=== PATIENT | male | born 1970 | race Caucasian/White ===

== ENCOUNTER 2021-06-01 23:03 | Emergency (ER) | payer BC, SELFPAY ==
[2021-06-01 23:23] VITALS: BP 144/83; PULSE 78; RESP 17; TEMP 36.6; O2SAT 94; BMI 31.3
--- NOTE | 2021-06-01 23:49 | XRR_ITS ---
PROCEDURE INFORMATION: Exam: XR Left Foot Exam date and time: 06/01/2021 11:49 PM Age: 51 years old Clinical indication: Injury or trauma; Fall; Blunt trauma; Foot; Left TECHNIQUE: Imaging protocol: XR Left foot. Views: 3 or more views. COMPARISON: No relevant prior studies available. FINDINGS: Bones/joints: Chronic degenerative changes in the 1st metatarsal-phalangeal joint. Heel spur Soft tissues: Normal. XR/XR foot LT min 3V* [id number] IMPRESSION: No acute findings
--- NOTE | 2021-06-01 23:49 | XRR_ITS ---
PROCEDURE INFORMATION: Exam: XR Left Ankle Exam date and time: 06/01/2021 11:49 PM Age: 51 years old Clinical indication: Injury or trauma; Fall; Swelling (edema); Ankle; Left TECHNIQUE: Imaging protocol: XR Left ankle. Views: 3 or more views. COMPARISON: No relevant prior studies available. FINDINGS: Bones/joints: Heel spur. Incidental ossicle inferior to the medial malleolus. The ankle mortise is normally aligned. No fracture Soft tissues: Normal. XR/XR ankle LT 2V [id number] IMPRESSION: No acute findings
--- NOTE | 2021-06-01 23:55 | ED_ITS ---
HPI - Extremity Problem General: Chief complaint: Extremity Injury, Lower Stated complaint: lower left injury Time Seen by Provider: 06/01/21 23:35 History of Present Illness: HPI Narrative: 51-year-old male who injured his ankle/foot while getting in a kayak yesterday afternoon. He has exhibited pain and swelling since that time with some bruising. Pain is located to the mid arch medially, and behind his right ankle. Worsened with weightbearing he state s he has broken that ankle previously. MD Complaint: extremity pain and extremity swelling Onset (ago): hour(s) (32) Pain Consistency: constant Location: right Quality: stabbing and aching Radiation: proximal Relieving factors: immobilization Exacerbating factors: weight bearing Associated symptoms: Deny chest pain, fever(s), rash or short of breath Review of Systems Const: Denies: fever(s) Card: Denies: chest pain Skin/Breast: Denies: rash PFSH ED PFSH: Social History Smoking and tobacco status: current every day smoker Physical Exam Const: COMMON NORMALS: no acute distress and healthy appearing Chest: COMMONS NORMALS: normal inspection of the chest Resp: COMMON NORMALS: normal respiratory effort, No use of accessory muscles and clear to auscultation bilaterally AUSCULTATION: clear to auscultation bilaterally Cardio: COMMON NORMALS: regular rate, regular rhythm and Peripheral pulses 2+ throughout RATE: regular rate RHYTHM: regular rhythm PERIPHERAL PULSES: Peripheral pulses 2+ throughout Extremity: NARRATIVE EXTREMITY EXAM: Exam of the left lower extremity reveals tenderness at the medial longitudinal arch mid arch, with some deltoid tenderness at the medial ankle. Swelling is present. Mild ecchymosis is present as well. Mild lateral ankle tenderness is present as well. No deformity. Neurovascular intact distally. Course Vital Signs: Vital signs: Vital Signs Temperature 97.9 F 06/01/21 23:23 Pulse Rate 78 06/01/21 23:23 Respiratory Rate 17 06/01/21 23:23 Blood Pressure 144/83 06/01/21 23:23 Pulse Oximetry 94 06/01/21 23:23 MDM - Extremity (Nontraumatic) MDM Narrative: Medical decision making narrative: X-rays negative for acute fracture by my read. Soft tissue swelling over the medial aspect of the ankle and foot. Suspect a posterior tibialis tendon injury. Will write a prescription for a cam walker boot, and let the patient bear weight as tolerated. Outpatient follow-up. Discharge Plan Discharge Patient Disposition: Home Clinical Impression: Tibialis posterior tendon rupture Qualifiers: Encounter type: initial encounter Laterality: left Qualified Code(s): S86.112A - Strain of other muscle(s) and tendon(s) of posterior muscle group at lower leg level, left leg, initial encounter Condition: Stable Prescriptions: New hydrocodone-acetaminophen 5-325 mg tablet 1 tab PO Q8H PRN (Reason: pain) Qty: 7 RF: 0 No Action lisinopril 10 mg tablet 10 mg PO BID RF: 0 Discharge Orders: Discharge ED (Routine); Ordered 06/02/21 Ordered By: Chad Franks Referrals: Bienvenido Oseguera [Primary Care Provider] - Discharge Diet: Usual diet Discharge Activity: Limit activity as instructed Patient Instructions: Ankle Sprain (ED) Activity Restrictions/Additional Instructions: You may bear weight as tolerated in the fracture boot for which you were written a prescription. Follow-up with your doctor in a week for recheck. Return for worsening swelling, redness with streaking, fever, any other concerning symptoms. Use ice and anti-inflammatory pain medication. Coding Level of Care Code ED Extracorporeal Circulation Specialist for Nikhil Fwsravanthi Exam Expanded Problem Focused
[2021-06-02 01:06] VITALS: BP 137/81; PULSE 72; RESP 18; O2SAT 97
== END 2021-06-02 01:06 | disposition home or self-care (01) ==
PROVIDERS: Emergency Provider Emergency Medicine; PCP Physician Assistant Medical
DX: S86.112A Strain of other muscle(s) and tendon(s) of posterior muscle group at lower leg level, left leg, initial encounter (principal); F17.200 Nicotine dependence, unspecified, uncomplicated; X58.XXXA Exposure to other specified factors, initial encounter
CPT/HCPCS: 73600; 73630; 99282

== ENCOUNTER 2021-08-19 18:30 | Inpatient (IN) | payer SELFPAY ==
[2021-08-19] VITALS (23 sets, daily range): BP systolic 134–169; BP diastolic 87–109; PULSE 71–91; RESP 16–33; TEMP 36.4–36.6; O2SAT 93–99; BMI 29.5
--- NOTE | 2021-08-19 18:41 | PM.HP ---
Providers/Chief Complaint Admitting Physician: Reynaldo Smith MD Primary Care Provider: Bienveniod Oseguera Chief Complaint: STEMI ALERT History of Present Illness Britton Moody is a 51 year old male with past medical history of hypertension has presented with severe chest pressure. He has been having chest pressure for the last 2 hours. He was hunting when he started noticing chest pressure. No radiation. EKG shows acute ST elevation LA involving inferior wall. He was emergently taken to the cardiac Referral Clerk which showed totally occluded proximal RCA s/p 2 successful revascularization with the SHAHNAZ x2. His chest pain and EKG changes resolved afterwards. Review of Systems Narrative: CONSTITUTIONAL: No fever chills weight loss or gain or night sweats. [] HEENT: Normocephalic, atraumatic.[] RESPIRATORY: No cough, sputum, hemoptysis or wheezing.[] CARDIOVASCULAR: Has chest pressure. GI: no nausea vomiting diarrhea. [] APPLIED ANTHROPOLOGIST: No numbness, tingling, weakness or loss of function in any part of the body. [] MUSCULOSKELETAL: No knee or joint pain or rashes. [] Medications/Allergies Home Medications Medication Instructions Recorded Confirmed Last Taken Type lisinopril 10 mg tablet 10 mg PO BID 04/21/21 04/21/21 Unknown History hydrocodone-acetaminophen 1 tab PO Q8H PRN #7 tab 06/02/21 Unknown Rx Allergies Allergy/AdvReac Type Severity Reaction Status Date / Time aspirin Allergy Unknown Verified 04/21/21 08:53 PFSH Acute PFSH: Medical History Hypertension Social History Smoking and tobacco status: current every day smoker Physical Exam Narrative: EXAM NARRATIVE: GENERAL: Patient is alert, awake and oriented x3. [] NECK: No jugular vein distension. [] HEENT: No cyanosis. No icterus. No pallor. [] HEART: Regular S1 and S2. No murmur, rub or gallop. [] LUNGS: Clear to auscultate bilaterally. [] ABDOMEN: Soft, nontender and nondistended. Positive bowel sounds. No guarding, rebound or tenderness. [] CENTRAL NERVOUS SYSTEM: Grossly nonfocal. [] EXTREMITIES: Lower extremities with 1+ edema bilaterally. Pulses palpable in the lower extremities, both dorsalis pedis and posterior tibial. [] Data : 08/20/21 03:17 08/20/21 03:17 A&P Assessment and plan (1) STEMI (ST elevation myocardial infarction): Status: Acute (2) Hypertension: Status: Acute (3) Tobacco abuse: Status: Acute (4) Atrial fibrillation: Status: Acute Patient has presented with acute ST elevation LA involving inferior wall. He underwent coronary angiogram showing total thrombotic occlusion of proximal RCA. He underwent successful revascularization with SHAHNAZ x2. Transfer to ICU Aspirin and Brilinta. He was found to be in A. fib at presentation later converted to normal sinus rhythm. At time of discharge we will switch him to Eliquis and Plavix. High intensity statin therapy Lisinopril and metoprolol Order echocardiogram Attestations Medical Necessity Statement*: Care expected to cross 2 midnights. Patient had presented with acute ST elevation LA involving RCA and is status post successful revascularization with SHAHNAZ x2. Coding Level of Care Code Acute Lineman Service Or Work Dispatcher for Nikhil Henao Diagnoses STEMI (ST elevation myocardial infarction) I21.3 Hypertension I10 Tobacco abuse Z72.0 Atrial fibrillation I48.91
--- NOTE | 2021-08-19 18:42 | ECG_ITS ---
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 Measurements Intervals [facility] Rate: 74 P: KS: QRS: 89 QRSD: 90 T: 102 QT: 422 QTc: 470 Interpretive Statements ATRIAL FIBRILLATION MARKED ST ELEVATION, CONSIDER INFERIOR INJURY [MARKED ST ELEVATION W/O NORMALLY INFLECTED T-WAVE IN II/aVF] ST elevation in lead V5 V6, suggestive of lateral wall injury ST depressions in leads V1, V2, I and aVL, suggest reciprocal changes ACUTE TX Compared to ECG 10/21/2015 15:37:36 Myocardial infarct finding now present Sinus bradycardia no longer present Intraventricular conduction delay no longer present Early repolarization no longer present ST (T wave) deviation still present Electronically Signed On 08-19-2021 21:59:08 INDUCTION HEATING EQUIPMENT SETTER by Forrest Adams M.D. [id number]
--- NOTE | 2021-08-19 18:43 | XACV_ITS ---
Wt: 91 kg Gender: Male : 1970 Exam Priority: Routine Procedure(s): Procedure Description: Diagnostic procedure Procedure Description: PCI procedure Procedure Description: Drug Eluting Coronary Stent Procedure Description: PTCA Procedure Description: Miscellaneous Procedure Description: ACT Procedure Description: Coronary Angiography Diagnostic Cath Status: Emergency Diagnostic Findings * INDICATION: ST elevation UT. * Left Anterior Descending has moderate to severe 70% stenosis in the apical vessel.. * Circumflex has no significant disease. * Proximal Right Coronary Artery to Mid Right Coronary Artery: total thrombotic occlusion, HUMAIRA: 0 flow. * Left Main has no disease. * Mid Right Coronary Artery: total occlusion, HUMAIRA: 0 flow. * Coronary angiography shows right dominance. PCI Status: Emergency PCI Indication: STEMI - Immediate PCI for STEMI Interventional Findings * Mid Right Coronary Artery: 100% stenosis treated with a MDT R RED 3.0 HSAHNAZ. 0% residual stenosis, HUMAIRA: 3 flow. * Procedure details: We engaged RCA with a JR4 guide catheter. IV heparin was administered to maintain an ACT above 250 seconds. A 0.014 run-through guidewire was used to cross the stenosis and was placed in distal vessel. 2.5 x 12 mm semicompliant balloon was used to predilate the stenosis. This was followed by placement of 3.0 x 15 mm resolute [place] drug-eluting stent. At the distal edge there was still some residual stenosis that was treated with a second 3.0 resolute [place] stent. At this time final angiogram was performed that showed excellent stent expansion, HUMAIRA-3 flow and no residual stenosis. Guidewire and guide catheter were removed. Patient left the Dealer Support Technician in a stable condition. * Proximal Right Coronary Artery to Mid Right Coronary Artery: 100% stenosis treated with a AB TREK 2.50X12 RX BALLOON, and MDT R RED 3.0X30 SHAHNAZ. 0% residual stenosis, HUMAIRA: 3 flow. Conclusions 1. There is total thrombotic of proximal to mid RCA status post successful revascularization with SHAHNAZ x2. . 2. Apical LAD has 70% stenosis however it is very distal vessel and will be treated medically. 3. Proximal Right Coronary Artery to Mid Right Coronary Artery was treated with a Balloon, and Drug Eluting Stent. 4. Mid Right Coronary Artery was treated with a Drug Eluting Stent. Recommendations * Transfer to ICU. * Aspirin and Plavix for at least 1 year. * High intensity statin therapy. * Lisinopril and metoprolol. * Outpatient cardiology follow-up in 1 month. * Order echocardiogram. Interventional RX Recommendation: PCI w/o planned CABG Diagnostic RX Recommendation: PCI w/o planned CABG Anticoagulation: Heparin Pressures Phase:Rest AO : 154 / 107 ( 126 ) @ 4:56:00 PM 155 / 3 ( 11 ) @ 5:01:00 PM 117 / 78 ( 97 ) @ 5:14:00 PM Clinical Evaluation EBL: 5mL-10mL Procedural Details Pre-Procedure Time Out. Identified patient by full name and date of as verbalized by the patient/guarantor. Does the consent match the physician's order: N/A Emergent. Accurate & Complete Informed Consent: N/A Emergent. Inpatient/Outpatient History & Physical on Chart: N/A Emergent. Visualize and Verify Site with Patient/Guarantor: N/A. Relevant Radiology Images available: N/A. Pre-op teaching completed and patient verbalized understanding. The risks, benefits, and alternatives of sedation and/or procedure were discussed by physician. The patient agrees to continue. Procedure started. [facility] Clinical Fraility Score: 3: Managing Well. Dealer Support Technician Indications: ACS <= 24 hours. Chest Pain Symptom Assessment: Atypical Angina. Correct patient, site and procedure confirmed by cath team. Current diagnosis: STEMI. PERRLA. Strong, equal hand ice cream freezer helper bilaterally. Lungs clear x 5 lobes. IV Site on Arrival: 20 gauge in the right hand. IV Fluids: 0.9% NaCl at KVO. 200 mL infused prior to recyclable materials distributor. Pre Procedural Pulses: right radial was 3+. Oxygen started at 2liters/min via nasal canula. right radial was prepped with chloroprep then draped in the usual sterile fashion. right groin was prepped with chloroprep then draped in the usual sterile fashion. Physician notified. Baseline sample Acquired. HR: 57 BPM. Physician arrived. Physician scrubbed in. Immediate Pre-Procedure Time Out. Correct Patient: Yes; Correct Procedure: Yes; Correct Site: Yes; Correct Patient Position: Yes; Correct Supplies: Yes; Dried Flammable Prep: N/A; Blood Products Available: N/A;. Lidocaine 1% infiltrated to the right radial. Arterial access obtained. PCI Indication: STEMI. Paula Bryan RN circulating procedure. A 5 ghanaian TIG catheter in over wire. Multiple views taken of left coronary artery. Catheter out. 6 ghanaian JR 4 guide catheter was inserted over the wire. Runthrough guidewire was advanced through the guide catheter to lesion in the prox RCA. AP pad applied. Inflation number : 1 A AB TREK 2.50X12 RX BALLOON was prepped and advanced across the Prox RCA , then inflated to 12 PATRICE for 0:20 seconds. Balloon out. Results checked. Balloon inserted to lesion in the prox LAD. Inflation Number : 2 A MDT R RED 3.0X30 SHAHNAZ -Lot Number# Lot [id number] Exp 04/18/2024 was prepped and advanced across the Prox RCA. The stent was deployed at 14 PATRICE for 0:21 seconds. Stent inserted to lesion in the prox RCA. Stent balloon out over wire. Results checked. Stent inserted to lesion in the mid RCA. Inflation Number : 1 A MDT R RED 3.0X30 SHAHNAZ -Lot Number# Lot [id number] Exp 04/18/2024 was prepped and advanced across the Mid RCA. The stent was deployed at 12 PATRICE for 0:25 seconds. Inflation number: 2 The stent balloon was then re-inflated across the Mid RCA to 14 PATRICE for 0:09 seconds. Stent balloon out over wire. Results checked. Wire out. Results checked. Guide catheter out. A 5 ghanaian TIG catheter in over wire. Multiple views taken of left coronary artery. Catheter out. ACT drawn. Results 222 seconds. Therapeutic limits - pre-heparin administration 90-150 seconds and monitoring heparin during a vascular procedure >250 seconds. Wire out. Admit Source: Emergency department. A TR Band was successful obtaining hemostatsis at the Radial artery insertion site. Post Procedure: Pulses reassessed and unchanged. PERRLA. Strong, equal hand ice cream freezer helper bilaterally. No VTE prophylaxis required. Medication's Wasted: Lidocaine 1% = 16 mL. Total IV fluids: 53 mL. Medication's Wasted: Nitro = 49.7 mg. PCI Indication: STEMI. Post-op diagnosis: Occlusion of Proximal and Mid RCA, STEMI. Complications: none. Estimated blood loss: 5mL-10mL. Procedure completed. Patient transferred by wheelchair to CPRU. Vital chart was stopped. Access Site Site: Radial artery Sheath Size: 6 Fr Hemostasis Method: TR Band Hemostasis Success: Successful Procedure Medications Start: 6:51 PM Stop: 6:51 PM Medication: Versed Amount: 1 mg Route: I.V. Start: 6:52 PM Stop: 6:52 PM Medication: Fentanyl Amount: 50 mcg Route: I.V. Start: 6:53 PM Stop: 6:53 PM Medication: Heparin Amount: 4000 units Route: I.V. Start: 6:53 PM Stop: 6:53 PM Medication: Aspirin Amount: 325 mg Route: P.O. Start: 6:53 PM Stop: 6:53 PM Medication: Heparin Amount: 5000 units Route: I.V. Start: 7:03 PM Stop: 7:03 PM Medication: Versed Amount: 1 mg Route: I.V. Start: 7:08 PM Stop: 7:08 PM Medication: Aggrastat 12.5 mg/250 mL Amount: 46 ml Route: I.V. bolus Start: 7:08 PM Stop: 7:08 PM Medication: Aggrastat 12.5 mg/250 mL Amount: 16.6 ml/hr Route: I.V. bolus Start: 7:09 PM Stop: 7:09 PM Medication: Nitrogylcerin Amount: 200 mcg Route: I.C. Start: 6:51 PM Stop: 6:51 PM Medication: Nitrogylcerin Amount: 100 mcg Route: I.A. I, the attending physician, have reviewed and verified all procedure medications. Yes, all medications given per verbal order Report Signatures Finalized by Reynaldo Smith MD on 09/02/2021 06:28 PM
--- NOTE | 2021-08-19 18:45 | W.ED.GENADLT ---
HPI - General Adult General: Chief complaint: Chest Pain Stated complaint: STEMI ALERT Time Seen by Provider: 08/19/21 18:39 History of Present Illness: HPI narrative: CC: Chest Pain HPI: This is a [51] yo patient hx of HTN, smoking BIBA to the ED w/ acute onset crushing substernal chest pain x 45 minutes . En route, HDS, field ECG showed inferior STEMI. Pain is a very typical prior presentation of cardiac chest pain. Pain not relieve with fentanyl and nitro SL x 4 Denies tearing back pain or chest pain. Onset: 45 minutes ago Duration: ongoing for the last 45 minutes Location: home Severity: severe Review of Systems Narrative: Constitutional: No fever, no chills. HEENT: No vision changes, no sore throat. CV: +chest pain, no palpitations. PULM: No cough, +dyspnea. GI: No abdominal pain, no N/V/D. : No dysuria, no frequency, no hematuria. MSKEL: No arthralgias, no edema. SKIN: No new rashes, no lesions. NEURO: No headache, no focal weakness. HEME: No easy bleeding or bruising. PSYCH: No change in mood or affect. PFS ED PFSH: Medical History Hypertension Social History Smoking and tobacco status: current every day smoker Physical Exam Narrative: EXAM NARRATIVE: Head: Atraumatic, normocephalic Eyes: PERRL, EOMI, conjunctiva without injection ENT: Throat without erythema, lesions or exudate, MMM NECK: Supple, trachea midline, no JVD LUNGS: LCTA CV: RRR, S1,S2, no murmurs, rubs, gallops. 2+ peripheral pulses in UEs ABDOMEN: Soft, nontender, nondistended, BS x4, no rigidity, no guarding, no rebound EXTREMITY: Normal ROM, no pitting edema, no calf tenderness to palpation SKIN: No rash or erythema NEURO: Awake and alert. No focal motor deficits. PSYCH: Normal mood and affect. MDM - General Adult MDM Narrative: Medical decision making narrative: [51]yo pt w/ hx of HTN and smoking BIBA for active chest pain with field EKG for STEMI in the inferior distributions. Pt received ASA 325mg and nitroSL x 4. Repeat ECG in the ED showed FELA in the infrior distributions with reciprocal changes. Patient was otherwise in their normal state of health before this chest pain rapidly ensued. Given history and exam I have a lower suspicion for TAA or dissection because no tearing chest pain, bounding bilateral UE pulses, XR chest did not show widened mediastinum, and patient is neurologically intact. I have no suspicion for PE because hx and exam are more consistent with STEMI and no signs of right axis with FELA findings on ECG. I performed a bedside echo which did not right heart strain to suggest submassive/massive PE. Pending: CBC, BMP, troponin, T&S, PT/INR. Will obtain repeat EKGs until woods laborer, CXR. [6:47] Initial ECG showed FELA in the distribution of 2/3/aVFL with reciprocal changes. [Time] Case and EKG discussed with Cardiology provider Dr. Knight who agrees that this is a STEMI. Intervention: ASA 325mg, Brillianta 180mg, and heparin drip Disposition: Lead Business Systems Analyst Discharge Plan Discharge Patient Disposition: Admitted As Inpatient Clinical Impression: ST elevation HI (STEMI) Condition: Stable Coding Level of Care Code ED Fence Post Driver for Nikhil Henao
[2021-08-19 18:52] LABS: Basophils # 0.1 10^3/uL (0.0-0.1); Basophils % 0.4 %; Eosinophils # 0.1 10^3/uL (0.0-0.8); Eosinophils % 0.7 %; Hematocrit 40.6 % (42.0-52.0); Hemoglobin 13.9 g/dL (11.7-16.6); Lymphocytes % 16.1 %; Mean Corpuscular HGB Conc 34.2 g/dL (30.0-36.0); Mean Corpuscular Hemoglobin 29.4 pg (28.0-34.0); Mean Platelet Volume 8.9 fL (7.4-10.4); Monocytes # 0.8 10^3/uL (0.2-0.9); Monocytes % 6.1 %; Neutrophils # 9.43 10^3/uL (1.8-7.7); Neutrophils % 76.2 %; Nucleated Red Blood Cells % 0 %; Platelet Count 259 10^3/cmm (130-400); Red Blood Count 4.72 10^6/uL (4.1-5.3); White Blood Count 12.4 10^3/uL (4.0-10.0)
[2021-08-19 18:58] LABS: INR 1.05 (0.8-1.2)
[2021-08-19 19:00] LABS: Anion Gap 18.7 (5-19); Blood Urea Nitrogen 12 mg/dL (6-20); Calcium 8.1 mg/dL (8.5-10.5); Carbon Dioxide 21 mmol/L (22-29); Chloride 103 mmol/L (98-107); Glomerular Filtration Rate 101.9 mL/min (90-130); Glucose 170 mg/dL (65-115); Osmolality Calculated 292 mOsm/kg (285-295); Potassium 3.7 mmol/L (3.5-5.1); Sodium 139 mmol/L (136-145)
[2021-08-19 19:06] LABS: Troponin(5th) Baseline 19 ng/L (0-15)
[2021-08-19 20:28] LABS: Basophils % 0.3 %; Eosinophils % 0.1 %; Hematocrit 45.2 % (42.0-52.0); Hemoglobin 14.6 g/dL (11.7-16.6); Lymphocytes # 1.1 10^3/uL (0.8-4.8); Lymphocytes % 10.7 %; Mean Corpuscular HGB Conc 32.3 g/dL (30.0-36.0); Mean Corpuscular Hemoglobin 28.9 pg (28.0-34.0); Mean Corpuscular Volume 89.3 fl (80-94); Mean Platelet Volume 8.6 fL (7.4-10.4); Monocytes # 0.4 10^3/uL (0.2-0.9); Monocytes % 3.8 %; Neutrophils # 8.43 10^3/uL (1.8-7.7); Neutrophils % 84.8 %; Nucleated Red Blood Cells % 0 %; Platelet Count 240 10^3/cmm (130-400); Red Blood Count 5.06 10^6/uL (4.1-5.3); Red Cell Distribution Width 13.2 % (12.1-15.1); White Blood Count 9.9 10^3/uL (4.0-10.0)
--- NOTE | 2021-08-19 20:42 | ECG_ITS ---
[facility] Test Date: 2021-08-19 Pat Name: Britton Moody Department: Room: [facility] Gender: Male Media Aid: : 1970 Requested By: Alex Martinez Order Number: [id number] Shilo MD: Forrest Adams M.D. Measurements Intervals [place] Rate: 79 P: 72 AK: 174 QRS: 69 QRSD: 104 T: 28 QT: 380 QTc: 436 Interpretive Statements SINUS RHYTHM PROBABLE INFERIOR MYOCARDIAL INFARCTION , OF INDETERMINATE AGE [35 ms Q WAVE IN II/aVF] Compared to ECG 08/19/2021 18:34:12 Atrial fibrillation no longer present ST (T wave) deviation no longer present Myocardial infarct finding still present Electronically Signed On 08-20-2021 22:49:10 LINING MACHINE TENDER by Forrest Adams M.D. [id number]
[2021-08-19 20:53] LABS: Anion Gap 18.1 (5-19); Blood Urea Nitrogen 12 mg/dL (6-20); Calcium 8.9 mg/dL (8.5-10.5); Carbon Dioxide 23 mmol/L (22-29); Chloride 99 mmol/L (98-107); Glucose 142 mg/dL (65-115); Osmolality Calculated 284 mOsm/kg (285-295); Potassium 4.1 mmol/L (3.5-5.1); Sodium 136 mmol/L (136-145)
[2021-08-19] MEDS: metoprolol tartrate 25 mg Tablet PO (21:16)
[2021-08-19] MEDS: atorvastatin 40 mg Tablet 80 MG PO (21:21)
[2021-08-19] MEDS: sodium chloride 0.9% 1,000 ML 100 ML IV (21:21)
--- NOTE | 2021-08-19 22:59 | PC.NURSE ---
Transfer Note Patient transferred to ICU 5 from laborer orchard via stretcher. Handoff received from Paula FLEMING, stated to turn off Aggrastat gtt at 23:15. Dr. Smith at bedside, spoke with patient. Patient oriented to environment and equipment. Covering service notified. Orders reviewed and will continue to monitor. Family and/or patient admitting representative notified.
--- NOTE | 2021-08-19 23:05 | PC.NURSE ---
Addendum entered by Antonieta Murrieta RN 08/20/21 06:30: 06:30 Spoke with echocardiogram tech rounding on floor, showed him Dr. Smith's noted in regards to diagnostic request. Addendum entered by Antonieta Murrieta RN 08/20/21 05:32: Approx. 04:[address] Smith of increasing ectopy with short runs of VT, order given to add mag level to AM labs and continue to monitor. Addendum entered by Antonieta Murrieta RN 08/20/21 03:00: Charge nurse Torri Ward RN, confirmed with Dr. Smith cancelled serial cardiac markers. Original Note: Patient stable at time of transfer. TR band in place, site soft without redness or warmth. Shortly after transfer patient started to have frequent PVC's. Dr. Smith called and notified of increase in PVC's and most recent labs, order given to give metoprolol first dose now and monitor.
[2021-08-20] VITALS (62 sets, daily range): BP systolic 92–135; BP diastolic 56–91; PULSE 59–81; RESP 14–24; TEMP 36.6–37.3; O2SAT 93–99
--- NOTE | 2021-08-20 00:42 | ECG_ITS ---
[facility] Test Date: 2021-08-20 Pat Name: Britton Moody Department: Room: [facility] Gender: Male Outreach Director: : 1970 Requested By: Alex Martinez Order Number: [id number] Shilo MD: Forrest Adams M.D. Measurements Intervals [place] Rate: 65 P: 70 NC: 156 QRS: 62 QRSD: 102 T: 76 QT: 413 QTc: 430 Interpretive Statements SINUS RHYTHM INFERIOR MYOCARDIAL INFARCTION , POSSIBLY ACUTE [40+ ms Q WAVE AND/OR ST/T ABNORMALITY IN II/aVF] ACUTE SC Compared to ECG 08/19/2021 21:01:22 No significant changes Electronically Signed On 08-20-2021 22:49:47 SWIMMING POOL SERVICER by Forrest Adams M.D. [id number]
[2021-08-20] MEDS: temazepam 15 mg Capsule PO (01:25)
[2021-08-20 04:30] LABS: Basophils % 0.4 %; Eosinophils % 0.4 %; Hematocrit 43.7 % (42.0-52.0); Hemoglobin 14.1 g/dL (11.7-16.6); Lymphocytes # 1.5 10^3/uL (0.8-4.8); Lymphocytes % 18.2 %; Mean Corpuscular HGB Conc 32.3 g/dL (30.0-36.0); Mean Corpuscular Hemoglobin 28.7 pg (28.0-34.0); Monocytes # 0.6 10^3/uL (0.2-0.9); Monocytes % 6.7 %; Neutrophils % 74.1 %; Nucleated Red Blood Cells % 0 %; Platelet Count 254 10^3/cmm (130-400); Red Blood Count 4.91 10^6/uL (4.1-5.3); Red Cell Distribution Width 13.2 % (12.1-15.1); White Blood Count 8.4 10^3/uL (4.0-10.0)
[2021-08-20 04:58] LABS: Anion Gap 18.9 (5-19); Blood Urea Nitrogen 12 mg/dL (6-20); Calcium 8.6 mg/dL (8.5-10.5); Carbon Dioxide 21 mmol/L (22-29); Chloride 99 mmol/L (98-107); Glomerular Filtration Rate 118.9 mL/min (90-130); Glucose 140 mg/dL (65-115); Osmolality Calculated 282 mOsm/kg (285-295); Potassium 3.9 mmol/L (3.5-5.1); Sodium 135 mmol/L (136-145)
[2021-08-20 05:10] LABS: Magnesium 1.9 mg/dL (1.7-2.3)
--- NOTE | 2021-08-20 07:55 | P.PN_ITS ---
Subjective Subjective: Interval history: Patient is overall doing well. Denies any chest pain. Vitals/I&O/Wt Last Vital Signs Temp 98.8 F 08/20/21 04:00 Pulse 62 08/20/21 06:30 Resp 19 H 08/20/21 06:30 BP 110/76 08/20/21 06:30 Pulse Ox 96 08/20/21 06:30 08/19/21 08/20/21 08/20/21 22:59 06:59 14:59 Intake Total 150 / 150 Output Total 850 / 850 Balance -850 / -850 150 / -700 Weight last 48 hrs Weight 206 lb 1.6 oz Weight 200 lb Physical Exam Narrative: EXAM NARRATIVE: GENERAL: Patient is alert, awake and oriented x3. [] NECK: No jugular vein distension. [] HEENT: No cyanosis. No icterus. No pallor. [] HEART: Regular S1 and S2. No murmur, rub or gallop. [] LUNGS: Clear to auscultate bilaterally. [] ABDOMEN: Soft, nontender and nondistended. Positive bowel sounds. No guarding, rebound or tenderness. [] CENTRAL NERVOUS SYSTEM: Grossly nonfocal. [] EXTREMITIES: Lower extremities with 1+ edema bilaterally. Pulses palpable in the lower extremities, both dorsalis pedis and posterior tibial. [] Data : 08/21/21 05:05 08/21/21 05:05 A&P Assessment and plan (1) STEMI (ST elevation myocardial infarction): Status: Acute (2) Hypertension: Status: Acute (3) Tobacco abuse: Status: Acute (4) Atrial fibrillation: Status: Acute Patient has presented with acute ST elevation [place] involving inferior wall. He underwent coronary angiogram showing total thrombotic occlusion of proximal RCA. He underwent successful revascularization with SHAHNAZ x2. If beds are available in the cardiac stepdown unit, will transfer him out. Aspirin and Brilinta. He is now in normal sinus rhythm was briefly in A. fib. Can be switched to Eliquis as outpatient High intensity statin therapy Lisinopril and metoprolol Echocardiogram pending. Attestations Medical Necessity Statement*: Care expected to cross 2 midnights. Patient had presented with acute ST elevation AR and underwent successful revascularization with SHAHNAZ x2. Coding Level of Care Code Acute [facility] Judge for Nikhil Henao Diagnoses STEMI (ST elevation myocardial infarction) I21.3 Hypertension I10 Tobacco abuse Z72.0 Atrial fibrillation I48.91
[2021-08-20] MEDS: metoprolol tartrate 25 mg Tablet PO ×2 (08:11→20:16)
[2021-08-20] MEDS: ticagrelor 90 mg Tablet PO ×2 (08:11→16:58)
--- NOTE | 2021-08-20 09:05 | PC.CHAP ---
Pastoral Care Encounter/Spiritual Assessment Type of Contact [] Declined media technician visit [] Patient/Family/Request visit [] Outpatient visit [] Follow-up visit [] Physician referral [] Code/Alert [x] Routine visit [] Staff referral [] Actively dying [x] Patient sleeping [] Family support [] [] Out of room [] Palliative care [] [x] Receiving care in room [] Pre-surgical visit [] Trauma [] Long length of stay [x] ICU visit [] Other: Relational/Emotional Strength [] Patient feels connected with others/family/visitors/staff [] Distress [] Loneliness/isolation [] Abandonment Spirituality of Patient [] Person of Alina [] Attends Mormonism of their Alina [] Believes in Prayer [] Reads Bible or Islam materials [] There are Spiritual issues to be addressed Character Artist Interventions [x] Prayer [] Active listening [] Non-anxious presence [] Spiritual/emotional support [] Crisis/trauma care [] Spiritual counseling [] Bereavement support [] Provided bereavement packet [] Provided Bible/devotional materials [] Provided toy/stuffed animal, coloring book to patient or family member [] Provided Communion [] Anointing/[place] [] Salvation [x] Completed spiritual assessment [] Other: Impact on Illness or Injury [] Angry [] Fearful [] Anxious [] Often cries [] Exhaustion [] Unable to work [] Unable to attend uatsdin [] Unable to walk/stand [] Unable to read [] Unable to drive [] Unable to eat/drink [] Unable to sleep [] Unable to be with family [] Patient intubated [] Other: Summary Time spent with patient
--- NOTE | 2021-08-20 09:28 | PC.PHAR ---
pt states he takes care of his own medications-pt states not taken lisinopril 10mg bid in months-ext med history shows last filled 10/17/20 90d/s-pt states he use to have a proair inhaler but states he doesnt have it anymore rx last filled 10/18/20
--- NOTE | 2021-08-20 10:44 | PC.NURSE ---
0700 report received, assessment completed as charted. AAOx4. R radial with dressing c/d/i. Pt denies CP or any needs. Uses urinal. Makes all needs known. Will monitor
--- NOTE | 2021-08-20 12:34 | USCV_ITS ---
Britton Moody Age: 51 Gender: M : 1970 Exam Date: 08/20/2021 13:50 Ordering Phys: Reynaldo Smith M.D ([email or web address]) Technologist: Alexandra Gibbs Exam Location: [facility] [place] Indication: POST STEMI BP: 135 / 76 HR: 66 Rhythm: Sinus Technical Quality: Adequate MEASUREMENTS (Male / Female) Normal Values 2D ECHO LV Diastolic Diameter PLAX 3.9 cm 4.2 - 5.9 / 3.9 - 5.3 cm LV Systolic Diameter PLAX 2.8 cm IVS Diastolic Thickness 1.3 cm 0.6 - 1.0 / 0.6 - 0.9 cm IVS Systolic Thickness 1.8 cm LVPW Diastolic Thickness 1.4 cm 0.6 - 1.0 / 0.6 - 0.9 cm LVPW Systolic Thickness 1.8 cm RV Chamber Size 3.0 cm LVOT Diameter 2.0 cm LV Ejection Fraction 2D Teich 54.4 % LV Ejection Fraction MOD 2C 49.8 % LV Ejection Fraction 2C AL 45.9 % LA Diameter 3.0 cm LA Width 2.5 cm LA Height 3.5 cm RA Width 3.5 cm RA Height 3.6 cm Aorta at Sinotubular Diameter 2.0 cm DOPPLER AV Peak Velocity 113.0 cm/s LVOT Peak Velocity 109.0 cm/s AV Area Cont Eq vti 3.2 cm squared AV Area Cont Eq pk 3.0 cm squared MV Area PHT 4.2 cm squared Mitral E to A Ratio 1.1 MV E' Velocity 39.0 cm/s Mitral E to MV E' Ratio 8.4 Mitral E to LV E' Lateral Ratio 8.5 Mitral E to LV E' Septal Ratio 8.3 TR Peak Velocity 224.7 cm/s TR Peak Gradient 20.2 mmHg Right Atrial Pressure 8.0 mmHg Pulmonary Artery Systolic Pressu 28.2 mmHg PV Peak Velocity 62.0 cm/s RV Acceleration Time 0.1 s RV Ejection Time 0.3 s RV AcT/ET 0.4 FINDINGS Left Ventricle Normal left ventricular size. LV systolic function is normal with EF of 50-55%. Mild hypokinesis of inferior wall. Normal diastolic filling pattern. Right Ventricle The right ventricle is normal in size and function. Right Atrium The right atrium is normal in size. Left Atrium The left atrium is normal in size. Mitral Valve Structurally normal mitral valve without significant stenosis or prolapse. There is trace mitral regurgitation. Aortic Valve Structurally normal aortic valve without significant sclerosis or stenosis. There is no aortic regurgitation. Tricuspid Valve Structurally normal tricuspid valve without significant stenosis or regurgitation. Insufficient TR jet to calculate RVSP Pulmonic Valve Structurally normal pulmonic valve without significant stenosis. There is trace pulmonic regurgitation. Pericardium Normal pericardium without effusion. Aorta Normal ascending aorta dimension. CONCLUSIONS LV systolic function is normal with EF of 50-55%. Mild hypokinesis of inferior wall. Normal diastolic function Trace mitral and trace pulmonic regurgitation No comparsion studies are available Reynaldo Smith MD (Electronically Signed) Final Date: 21 August 2021 13:38 S
[2021-08-20] MEDS: sodium chloride 0.9% 1,000 ML 50 ML IV (16:57)
--- NOTE | 2021-08-20 17:53 | PC.NURSE ---
Shift Note Frequent safety and comfort rounds continue. Orders and/or nursing care completed as indicated. Patient monitored for response to intervention and treatment(s). Education provided includes treatment plan, medications, s/s of CP and IA. Pt verbalizes understanding. Denies any needs, up in room walking at times. VSS. Will continue to monitor.
--- NOTE | 2021-08-20 19:15 | PC.NURSE ---
Family at bedside Family at bedside upon shift assessment. Education regarding cardiac diet and visiting hours provided via discussion and printed materials. Family states intention of visiting following day.
[2021-08-20] MEDS: atorvastatin 40 mg Tablet 80 MG PO (20:17)
[2021-08-21] VITALS (22 sets, daily range): BP systolic 91–128; BP diastolic 54–87; PULSE 55–62; RESP 13–19; TEMP 36.6–36.8; O2SAT 94–98; BMI 29.2
--- NOTE | 2021-08-21 05:21 | PC.NURSE ---
Ambulation Patient safely transitioned to bedside commode from bed, in addition to walked short distances within room. Patient's vitals remained stable and only required standby assistance for ambulation.
[2021-08-21 05:44] LABS: Basophils # 0.1 10^3/uL (0.0-0.1); Basophils % 0.7 %; Eosinophils # 0.3 10^3/uL (0.0-0.8); Eosinophils % 2.8 %; Hematocrit 46.1 % (42.0-52.0); Hemoglobin 14.7 g/dL (11.7-16.6); Lymphocytes # 2.1 10^3/uL (0.8-4.8); Lymphocytes % 22.6 %; Mean Corpuscular HGB Conc 31.9 g/dL (30.0-36.0); Mean Corpuscular Hemoglobin 29.2 pg (28.0-34.0); Mean Corpuscular Volume 91.5 fl (80-94); Monocytes # 0.7 10^3/uL (0.2-0.9); Monocytes % 7.2 %; Neutrophils # 6.05 10^3/uL (1.8-7.7); Neutrophils % 66.5 %; Nucleated Red Blood Cells % 0 %; Platelet Count 264 10^3/cmm (130-400); Red Blood Count 5.04 10^6/uL (4.1-5.3); Red Cell Distribution Width 13.6 % (12.1-15.1); White Blood Count 9.1 10^3/uL (4.0-10.0)
[2021-08-21 06:09] LABS: Anion Gap 14.5 (5-19); Blood Urea Nitrogen 16 mg/dL (6-20); Calcium 8.3 mg/dL (8.5-10.5); Carbon Dioxide 21 mmol/L (22-29); Chloride 107 mmol/L (98-107); Glucose 107 mg/dL (65-115); Osmolality Calculated 288 mOsm/kg (285-295); Potassium 4.5 mmol/L (3.5-5.1); Sodium 138 mmol/L (136-145)
--- NOTE | 2021-08-21 07:13 | PC.NURSE ---
Report received, assessment completed. Pt AAOx4, makes all needs known. VSS. No issues noted. NS at 50ml/h per orders. Will monitor.
[2021-08-21] MEDS: metoprolol tartrate 25 mg Tablet PO (07:55)
[2021-08-21] MEDS: ticagrelor 90 mg Tablet PO (07:55)
--- NOTE | 2021-08-21 10:04 | P.DS_ITS ---
Discharge Providers Date of Admission: 08/19/21 19:50 Date of Discharge: August 21, 2021 Attending Provider at Admission: Reynaldo Smith M.D Attending Provider at Discharge: Reynaldo Smith M.D Primary Care Provider: Bienvenido Oseguera Diagnoses at Discharge Discharge Diagnosis (1) STEMI (ST elevation myocardial infarction): (2) Hypertension: Status: Acute (3) Tobacco abuse: Status: Acute (4) Atrial fibrillation: Status: Acute Reason for Visit Reason for Visit: Brief History: Chest pain/ST elevation [place] HPI: 51 year old male with past medical history of hypertension has presented with severe chest pressure. He has been having chest pressure for the last 2 hours. He was hunting when he started noticing chest pressure. No radiation. EKG shows acute ST elevation [place] involving inferior wall. He was emergently taken to the cardiac Service Assistant COURSE: Britton Moody is a 51 year old male with past medical history of hypertension has presented with severe chest pressure. He has been having chest pressure for the last 2 hours. He was hunting when he started noticing chest pressure. No radiation. EKG shows acute ST elevation [place] involving inferior wall. He was emergently taken to the cardiac Service Assistant which showed totally occluded proximal RCA s/p 2 successful revascularization with the SHAHNAZ x2. His chest pain and EKG changes resolved afterwards. Echocardiogram showed preserved LV systolic function with EF of 50 to 55%. He was briefly in atrial fibrillation which resolved after revascularization. Plan for outpatient monitoring and possibly switching from Brilinta to Eliquis and Plavix. Physical Exam Narrative: EXAM NARRATIVE: GENERAL: Patient is alert, awake and oriented x3. [] NECK: No jugular vein distension. [] HEENT: No cyanosis. No icterus. No pallor. [] HEART: Regular S1 and S2. No murmur, rub or gallop. [] LUNGS: Clear to auscultate bilaterally. [] ABDOMEN: Soft, nontender and nondistended. Positive bowel sounds. No guarding, rebound or tenderness. [] CENTRAL NERVOUS SYSTEM: Grossly nonfocal. [] EXTREMITIES: Lower extremities with 1+ edema bilaterally. Pulses palpable in the lower extremities, both dorsalis pedis and posterior tibial. 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 echo complete * [id number] Routine Ultrasound 08/20/21 12:34 Taken Labs from last 24 hours 08/21/21 08/21/21 05:05 05:05 WBC 9.1 RBC 5.04 Hgb 14.7 Hct 46.1 MCV 91.5 MCH 29.2 MCHC 31.9 RDW 13.6 Plt Count 264 MPV 9.0 Neut % (Auto) 66.5 Lymph % (Auto) 22.6 [place] % (Auto) 7.2 Eos % (Auto) 2.8 Baso % (Auto) 0.7 Neut # (Auto) 6.05 Lymph # (Auto) 2.1 [place] # (Auto) 0.7 Eos # (Auto) 0.3 Baso # (Auto) 0.1 Nucleated RBC % (a uto) 0 Nucleated RBCs # 0.0 Sodium 138 Potassium 4.5 Chloride 107 Carbon Dioxide 21 L Anion Gap 14.5 BUN 16 Creatinine 0.9 GFR Calculation 89.0 L Glucose 107 Calculated Osmolal ity 288 Calcium 8.3 L Vitals: Last Vital Signs Temp 97.8 F 08/21/21 08:00 Pulse 56 L 08/21/21 08:30 Resp 18 08/21/21 06:00 BP 128/87 08/21/21 08:30 Pulse Ox 96 08/21/21 08:30 Discharge Plan Discharge Patient Disposition: Home Condition: Stable Prescriptions: New atorvastatin 40 mg Tablet 80 mg PO BEDTIME Qty: 90 RF: 0 metoprolol tartrate 25 mg Tablet 25 mg PO BID@0900,2100 Qty: 120 RF: 3 aspirin 81 mg capsule 81 mg PO DAILY Qty: 90 RF: 1 lisinopril 5 mg tablet 5 mg PO DAILY Qty: 90 RF: 2 Discontinued lisinopril 10 mg tablet 10 mg PO BID RF: 0 No Action clopidogrel 75 mg tablet 75 mg PO DAILY Qty: 90 RF: 3 Discharge Orders: Discharge Order (Routine); Ordered 08/21/21 Ordered By: Reynaldo Smith Referrals: Reynaldo Smith M.D [Physician] - 09/22/21 3:15 pm (FO[facility] UP [facility] [phone] , 1 MONTH FOLLOW UP : SCHEDULED FOR DATE OF September ,TIME OF 3:15 PM ) Jake Nascimento FNP [Nurse Practitioner] - 09/01/21 3:00 pm ([facility]CIMENT[facility] AT [facility] [phone] FOR WOUND CHECK , LAB WORK AND FOLLOW UP DATE OF SEPTEMBER 01 2021 AT 3:00 PM ) Discharge Diet: Cardiac Discharge Activity: Increase activity as tolerated Patient Instructions: Metoprolol (By mouth), Lisinopril (By mouth), Aspirin (By mouth), Atorvastatin (By mouth), Ticagrelor (By mouth) (Brilinta), Heart Attack (DC), Coronary Angioplasty (DC), How to Stop Smoking (DC), Heart Healthy Diet (DC), Coronary Intravascular Stent Placement (DC), Angiogram (DC), Chest Pain Stoplight, Opioid Safety Activity Restrictions/Additional Instructions: Please do not lift more than 5 pounds of weight for the next 5 days Discharge Attestations Time Spent in Discharge Care*: greater than 30 min Quality Metrics Clinical Quality Measures During this hospital stay, did patient experience: AMI Clinical Trial Participant: No Contraindication to aspirin (AMI): Aspirin given Contraindication to statin: Statin prescribed Coding Level of Care Code Acute [facility] note Diagnoses STEMI (ST elevation myocardial infarction) I21.3 Hypertension I10 Tobacco abuse Z72.0 Atrial fibrillation I48.91 Course Vital Signs Vital signs: Vital Signs Temperature 98.0 F 08/21/21 10:58 Pulse Rate 55 L 08/21/21 10:58 Respiratory Rate 18 08/21/21 06:00 Blood Pressure 111/73 08/21/21 10:58 Pulse Oximetry 96 08/21/21 10:58
--- NOTE | 2021-08-21 10:56 | PC.NURSE ---
PIV's x 3 removed without issue. Education provided r/t medications at dc and other cardiac related issues. Awaiting meds to bed from pharmacy. Pt off monitor and dressed. VSS.
--- NOTE | 2021-08-21 11:55 | PC.NURSE ---
Pt dc'd to private vehicle via . All education provided and meds given to pt prior to dc.
== END 2021-08-21 11:55 | disposition home or self-care (01) | DRG 247 ==
LOC: ER 18:41 → CCL 18:41 → ICU 19:51
PROVIDERS: Admitting Provider Internal Medicine; Emergency Provider Emergency Medicine; PCP Physician Assistant Medical; Visit Provider Internal Medicine
PROC: 027035Z Dilation of Coronary Artery, One Artery with Two Drug-eluting Intraluminal Devices, Percutaneous Approach (ICD-10-PCS; principal; 2021-08-19 18:15)
PROC: 027035Z Dilation of Coronary Artery, One Artery with Two Drug-eluting Intraluminal Devices, Percutaneous Approach (ICD-10-PCS; 2021-08-19 18:15)
DX: I21.11 ST elevation (STEMI) myocardial infarction involving right coronary artery (principal); I10 Essential (primary) hypertension; F17.210 Nicotine dependence, cigarettes, uncomplicated; I48.91 Unspecified atrial fibrillation
CPT/HCPCS: 36415; 80048; 83735; 84484; 85025; 85347; 85610; 85730; 93005; 93306; 93454; 99285; C1725; C1769; C1874; C1887; C1894; C9600; J0171; J0461; J1644; J2250; J3010; J3246; J3490; J7030; Q9967

== ENCOUNTER → 2021-09-01 16:12 | Outpatient (BNVA) | payer SELFPAY | PROVIDERS: PCP Physician Assistant Medical; Visit Provider Nurse Practitioner Family | DX: I48.91 Unspecified atrial fibrillation (principal); I25.10 Atherosclerotic heart disease of native coronary artery without angina pectoris | CPT/HCPCS: 80048 ==

== ENCOUNTER 2025-09-08 11:37 | Emergency (ER) | payer SELFPAY ==
--- NOTE | 2025-09-08 11:21 | XRR_ITS ---
PROCEDURE INFORMATION: Exam: XR Chest Exam date and time: 09/08/2025 11:52 AM Age: 55 years old Clinical indication: Pain; Chest pressure; Additional info: Cp TECHNIQUE: Imaging protocol: Radiologic exam of the chest. Views: 1 view. COMPARISON: No relevant prior studies available. FINDINGS: Lungs: No acute pulmonary pathology. Pleural spaces: No pleural effusion. Heart/Mediastinum: Cardiomediastinal contours accentuated by low lung volumes and AP technique. Bones/joints: Mild degenerative change present in the spine. XR/XR chest 1V portable [id number] IMPRESSION: No acute pathology.
[2025-09-08 11:38] VITALS: BP 144/89; PULSE 58; RESP 16; TEMP 36.7; O2SAT 94; BMI 30.1
--- NOTE | 2025-09-08 11:42 | ECG_ITS ---
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
--- NOTE | 2025-09-08 11:47 | W.ED.CHESTPA ---
HPI - Chest Pain General: Chief Complaint: Chest Pain Stated Complaint: chest pain Time Seen by Provider: 09/08/25 11:37 Source: patient and EMS Mode of arrival: EMS Limitations: no limitations History of Present Illness: 55-year-old male has history of coronary disease states that he has been having chest pain for the last 2 to 3 days. States he had worsening pain today a pressure type pain in the center of his chest he is given nitro and route states the pain is since resolved he also has received aspirin. He denies any fevers denies any shortness of breath denies any cough. Related Data Previous Rx's ?Medication ?Instructions ?Recorded aspirin 81 mg capsule 81 mg PO DAILY #90 caps 11/04/21 lisinopril 5 mg tablet See Rx Instructions .Route 06/15/24 .COMPLEX #90 tabs atorvastatin 40 mg tablet See Rx Instructions .Route 05/04/25 .COMPLEX #180 tabs clopidogrel 75 mg tablet See Rx Instructions .Route 05/04/25 .COMPLEX #90 tabs metoprolol tartrate 25 mg tablet See Rx Instructions .Route 05/08/25 .COMPLEX #90 tabs ondansetron 4 mg disintegrating 4 mg PO Q6H PRN nausea and 09/08/25 tablet vomiting #14 tabs pantoprazole 40 mg tablet,delayed 40 mg PO DAILY #60 tabs 09/08/25 release (Protonix) Allergies Allergy/AdvReac Type Severity Reaction Status Date / Time No Known Allergies Allergy Verified 09/08/25 11:46 Review of Systems Card: Reports: chest pain [facility] ED PFSH: Medical History (Updated 09/08/25 @ 14:40 by Oni Art MD) Atherosclerosis of coronary artery Atrial fibrillation STEMI (ST elevation myocardial infarction) Hypertension Family History Father Diabetes Myocardial infarct Mother Myocardial infarct Stroke Social History Smoking and tobacco/nicotine status: current every day tobacco/nicotine user cigarettes Physical Exam Const: COMMON NORMALS: patient oriented x3 HENMT: COMMON NORMALS: normocephalic and atraumatic HEAD & SCALP: normocephalic and atraumatic Neck/C-Spine: COMMON NORMALS: full ROM and supple Chest: COMMONS NORMALS: normal inspection of the chest and normal palpation of entire chest wall Resp: COMMON NORMALS: normal respiratory effort, No retractions, No use of accessory muscles and clear to auscultation bilaterally AUSCULTATION: clear to auscultation bilaterally Cardio: COMMON NORMALS: regular rate, regular rhythm and No murmurs present (Cardio) RATE: regular rate RHYTHM: regular rhythm GI: COMMON NORMALS: Normal to inspection, nondistended, normoactive bowel sounds present, Soft to palpation, non-tender and no masses PALPATION: Yes Soft to palpation Extremity: COMMON NORMALS: normal to inspection and full ROM Neuro: COMMON NORMALS: patient oriented x3, moves all extremities and no focal motor deficits Psych: COMMON NORMALS: mental status grossly normal, Normal thought process present and cooperative THOUGHT PROCESS: Normal thought process present Skin: COMMON NORMALS: no rashes or lesions noted and no wounds GENERAL SKIN EXAM: no rashes or lesions noted Course Vital Signs: Vital signs: Vital Signs Temperature 98.0 F 09/08/25 11:38 Pulse Rate 58 L 09/08/25 11:38 Respiratory Rate 16 09/08/25 11:38 Blood Pressure 144/89 09/08/25 11:38 Pulse Oximetry 94 09/08/25 11:38 Oxygen Delivery Me thod Room Air 09/08/25 11:38 MDM - Chest Pain Medical Decision Making 55-year-old male presents here with chest pain differential includes gastric pain, ACS, pulm embolism, pneumothorax. His pains been atypical in nature here has been going on intermittently for weeks his initial and repeat troponins here are negative heart score is 2. He has no signs of ACS x-ray here was interpreted by me showed no acute abnormality no signs of pneumothorax he has no signs of pulm embolism. His pain was resolved here with GI cocktails likely gastric in origin we will place him on Protonix he is to follow-up with his PCP I did go over all these findings with him he is to return if worsening he understands agrees to plan. EKG interpreted by me at 1142 sinus bradycardia heart rate [address] elevation QRS 107 QTc 409 Second EKG interpreted by me at 1328 sinus bradycardia heart rate [address] elevation QRS 104 QTc 4 7 Medical Records I reviewed the patient's medical records. Lab Data I reviewed the patient's lab results. 09/08/25 11:48 09/08/25 11:48 Radiology Impressions Chest X-Ray 09/08/25 11:21 IMPRESSION: No acute pathology. Laboratory Results WBC 9.69 10^3/uL (3.29-11.43) 09/08/25 11:48 RBC 5.42 10^6/uL (3.85-5.65) 09/08/25 11:48 Hgb 15.60 g/dL (11.27-16.99) 09/08/25 11:48 Hct 46.9 % (37-53) 09/08/25 11:48 MCV 86.5 fl (82-101) 09/08/25 11:48 MCH 28.8 pg (27-33) 09/08/25 11:48 MCHC 33.3 g/dL (30-55) 09/08/25 11:48 RDW 12.5 % (12.1-15.1) 09/08/25 11:48 Plt Count 220 10^3/cmm (157-399) 09/08/25 11:48 MPV 8.2 fL (7.4-10.4) 09/08/25 11:48 Neut % (Auto) 71.8 % 09/08/25 11:48 Lymph % (Auto) 20.6 % 09/08/25 11:48 [place] % (Auto) 6.8 % 09/08/25 11:48 Eos % (Auto) 0.2 % 09/08/25 11:48 Baso % (Auto) 0.4 % 09/08/25 11:48 Neut # (Auto) 6.95 10^3/uL (1.8-7.7) 09/08/25 11:48 Lymph # (Auto) 2.0 10^3/uL (0.8-4.8) 09/08/25 11:48 [place] # (Auto) 0.7 10^3/uL (0.2-0.9) 09/08/25 11:48 Eos # (Auto) 0.0 10^3/uL (0.0-0.8) 09/08/25 11:48 Baso # (Auto) 0.0 10^3/uL (0.0-0.1) 09/08/25 11:48 Nucleated RBC % (auto) 0 % 09/08/25 11:48 Nucleated RBCs # 0.0 /100WBC 09/08/25 11:48 PT 13.00 SECONDS (12.1-14.9) 09/08/25 11:48 INR 0.92 (0.8-1.2) 09/08/25 11:48 Sodium 135 mmol/L (136-145) L 09/08/25 11:48 Potassium 4.3 mmol/L (3.5-5.1) 09/08/25 11:48 Chloride 96 mmol/L (98-107) L 09/08/25 11:48 Carbon Dioxide 28 mmol/L (22-29) 09/08/25 11:48 Anion Gap 15.3 (5-19) 09/08/25 11:48 BUN 17 mg/dL (6-20) 09/08/25 11:48 Creatinine 0.9 mg/dL (0.7-1.2) 09/08/25 11:48 GFR Calculation 87.6 mL/min (90-130) L 09/08/25 11:48 Glucose 130 mg/dL (65-115) H 09/08/25 11:48 Calculated Osmolality 283 mOsm/kg (285-295) L 09/08/25 11:48 Calcium 9.9 mg/dL (8.5-10.5) 09/08/25 11:48 Total Bilirubin 0.5 mg/dL (0.15-1.2) 09/08/25 11:48 AST 19 U/L (0-40) 09/08/25 11:48 ALT 25 U/L (0-41) 09/08/25 11:48 Alkaline Phosphatase 125 U/L (40-130) 09/08/25 11:48 Troponin T Baseline 9 ng/L (0-15) 09/08/25 11:48 Troponin T 120 Minute 8.26 ng/L (0-15) 09/08/25 14:00 Delta Troponin T -0.74 ABS# (0-10) L 09/08/25 14:00 Total Protein 6.8 g/dL (6.6-8.7) 09/08/25 11:48 Albumin 4.3 g/dL (3.5-5.2) 09/08/25 11:48 Globulin 2.5 g/dL (1.3-4.6) 09/08/25 11:48 Lipase 95 U/L (13-60) H 09/08/25 11:48 All radiology interpretation(s) finalized by discharge Discharge Plan Discharge Patient Disposition: Home Clinical Impression: Atypical chest pain Condition: Stable Prescriptions: New pantoprazole [Protonix] 40 mg tablet,delayed release (DR/EC) 40 mg PO DAILY Qty: 60 0RF ondansetron 4 mg tablet,disintegrating 4 mg PO Q6H PRN (Reason: nausea and vomiting) Qty: 14 0RF No Action aspirin 81 mg capsule 81 mg PO DAILY Qty: 90 1RF lisinopril 5 mg tablet See Rx Instructions .ROUTE .COMPLEX Qty: 90 3RF Dose Instruction: TAKE 1 TABLET BY MOUTH EVERY DAY Rx Instructions: TAKE 1 TABLET BY MOUTH EVERY DAY clopidogrel 75 mg tablet See Rx Instructions .ROUTE .COMPLEX Qty: 90 3RF Dose Instruction: TAKE 1 TABLET BY MOUTH EVERY DAY Rx Instructions: TAKE 1 TABLET BY MOUTH EVERY DAY atorvastatin 40 mg tablet See Rx Instructions .ROUTE .COMPLEX Qty: 180 3RF Dose Instruction: TAKE 2 TABLETS (80 MG) BY MOUTH ONCE EVERY NIGHT AT BEDTIME Rx Instructions: TAKE 2 TABLETS (80 MG) BY MOUTH ONCE EVERY NIGHT AT BEDTIME metoprolol tartrate 25 mg tablet See Rx Instructions .ROUTE .COMPLEX Qty: 90 2RF Dose Instruction: TAKE 1/2 TABLET BY MOUTH EVERY DAY Rx Instructions: TAKE 1/2 TABLET BY MOUTH EVERY DAY Discharge Orders: Discharge ED (Routine); Ordered 09/08/25 Ordered By: Oni Art Referrals: Armando Don [Primary Care Provider, Family Practice] - 4-7 days Discharge Diet: Advance as tolerated Discharge Activity: Resume usual activity Patient Instructions: Chest Pain (ED) Print Language: [place] Coding Level of Care Code ED Supervisor Lamp [place]ades for Chg Fwd Heart Score HEART Score Components History: Slightly Suspicous EKG: Normal Age: 45-64 yrs Risk Factors: 1 or 2 Risk Factors Troponin: Baseline Trop <16 ng/L HEART Score RESULT HEART Score: 2
--- OUTSIDE RECORDS SUMMARY | 2025-09-08 11:52 | XMS_ITS | Encounter Summary ---
Author Organization [facility] Address [address] [place] [address] Care Team Providers Care Copying Machine Repairer Name Role Phone Lianet Helms MD Primary Care Provider [phone]- [phone] Encounter Details Date Type Department Care Team (Latest Contact Info) Description 03/07/1999 Outpatient Historical [facility] Medicine- [address] [address] Harrison Laws DO NO ADDRESS ON FILE Myalgia and myositis, unspecified (Primary Dx) Social History Tobacco Use Types Packs/Day Years Used Date Smoking Tobacco: Never Assessed Sex and Gender Information Value Date Recorded Sex Assigned at Not on file 

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
--- OUTSIDE RECORDS SUMMARY | 2025-09-08 11:52 | XMS_ITS | Encounter Summary ---
Author Organization [facility] Address [address] [place] [address] Care Team Providers Care Patient Financial Services Coordinator Name Role Phone Lianet Helms MD Primary Care Provider [phone]- [phone] Encounter Details Date Type Department Care Team (Latest Contact Info) Description 08/16/2002 Outpatient Historical [facility] Medicine- [address] [address] Harrison Laws, NO ADDRESS ON FILE JOINT PAIN-UP/ARM (Primary Dx) Social History Tobacco Use Types Packs/Day Years Used Date Smoking Tobacco: Never Assessed Sex and Gender Information Value Date Recorded Sex Assigned at Not on file 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
--- OUTSIDE RECORDS SUMMARY | 2025-09-08 11:52 | XMS_ITS | Encounter Summary ---
Author Organization [facility] Address [address] [place] [address] Care Team Providers Care Jeep Driver Name Role Phone Lianet Helms MD Primary Care Provider Encounter Details Date Type Department Care Team (Latest Contact Info) Description 02/08/2002 Outpatient Historical [facility] Medicine- [address] [address] Bayron Hatch MD [address] [address] UNS ASTHMA WOSTATUS ASTHMATICUS (Primary Dx); Topical food dermatitis Social History Tobacco Use Types Packs/Day Years Used Date Smoking Tobacco: Never Assessed Sex and Gender Information Value Date Recorded Sex Assigned at Not on file 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
--- OUTSIDE RECORDS SUMMARY | 2025-09-08 11:52 | XMS_ITS | Clinical Summary ---
Author Organization [facility] Address [address] [facility] Attn: [place] [address] Care Team Providers Care Lan Manager Name Role Phone Armando Don MD Primary Care Provider [phone] Allergies Active Allergy Reactions Criticality Noted Date Comments Aspirin Swelling Low 08/09/2019 Medications lisinopriL (PRINIVIL) 5 mg tablet Take 5 mg by mouth daily. Active atorvastatin (LIPITOR) 40 mg tablet Take 40 mg by mouth daily. Active clopidogreL (PLAVIX) 75 mg Tablet Take 75 mg by mouth daily. Active metoprolol tartrate (LOPRESSOR) 25 mg tablet Take 25 mg by mouth daily. Active aspirin (ECOTRIN EC) 81 mg Tablet, Delayed Release (E.C.) Take 81 mg by mouth daily. Active Active Problems Problem Noted Date Diagnosed Date History of PR (myocardial infarction) 08/04/2021 Overview (05/24/2023): marker Tobacco use 10/17/2020 Immunizations Immunization Administration Dates Next Due (ADACEL/BOOSTRIX)(10 YR UP) TDAP VACCINE, 0.5ML, IM 03/07/2017 (TDVAX)(7 YRS UP) TETANUS AN D DIPHTHERIA TOXOIDS, ADSORBED (2 LF OF TETANUS TOXOID AND 2 LF OF DIPHTHERIA TOXOID), 0.5ML (PF), IM 05/15/2003 Social History Tobacco Use Types Packs/Day Years Used Date Smoking Tobacco: Every Day Cigarettes Smokeless Tobacco: Never Tobacco Cessation:Ready to Q uit: No; Counseling Given: Not Answered Alcohol Use Standard Drinks/Week Comments Not Currently 0 (1 standard drink = 0.6 oz pur e alcohol) Sex and Gender Information Value Date Recorded Sex Assigned at Not on file Legal Sex Male 8:25 AM TRIM OPERATOR Gender Identity Not on file Sexual Orientation Not on file Last Filed Vital Signs Vital Sign Reading Time Taken Comments Blood Pressure 119/87 06/18/2023 9:17 AM CDT Pulse 54 06/18/2023 9:17 AM CDT Temperature 36.4 C (97.5 F) 06/18/2023 9:17 AM CDT Respiratory Rate 13 06/18/2023 9:17 AM CDT Oxygen Saturation 96% 06/18/2023 9:17 AM CDT Inhaled Oxygen Concentration - - Weight 90.3 kg (199 lb) 06/18/2023 9:17 AM CDT Height 176.5 cm (5' 9.5 ) 06/18/2023 9:17 AM CDT Body Mass Index 28.97 06/18/2023 9:17 AM CDT Plan of Treatment Health Maintenance Due Date Last Done Comments HEPATITIS B VACCINES (1 of 3 - 19+ 3-dose series) 1989 COLORECTAL SCREENING 2015 Colorectal Cancer Screening 2015 FIT-DNA Q 3 years 2015 FIT/FOBT Q 1 year 2015 Flex Sig/CT Colonography Q 5 years 2015 ZOSTER VACCINE (1 of 2) 02/27/2020 INFLUENZA VACCINE (#1) 2025 10/17/2020 DTAP/TDAP/TD VACCINES (2 - Td or Tdap) 03/07/2027, 05/15/2003 Care Teams Lan Manager Relationship Specialty Start Date End Date Armando Don MD [address] [facility] [address] [place] [phone] PCP - General Family Practice 05/24/23
--- OUTSIDE RECORDS SUMMARY | 2025-09-08 11:52 | XMS_ITS | Clinical Summary ---
Author Organization [facility] Address [address] [place] [address] Phone Care Team Providers Care Dump Attendant Name Role Phone Lianet Helms MD Primary Care Provider Allergies Active Allergy Reactions Criticality Noted Date Comments Aspirin Swelling Low 08/09/2019 Medications albuterol HFA 90 mcg inhaler Take 2 Puffs by inhalation every 4 hours as needed for Shortness of Breath. 6.7 Gram 11 1 Active predniSONE (DELTASONE) 20 mg tablet Take 2 Tablets (40 mg) by mouth daily. 14 Tablet 1 Active lisinopriL (PRINIVIL) 10 mg tablet Take 1 Tablet (10 mg) by mouth 2 times daily. 180 Tablet 1 1 Active Active Problems Problem Noted Date Diagnosed Date Tobacco use 10/17/2020 Immunizations Immunization Administration Dates Next Due (ADACEL/BOOSTRIX)(10 YR UP) TDAP VACCINE, 0.5ML, IM 03/07/2017 (TDVAX)(7 YRS UP) TETANUS AN D DIPHTHERIA TOXOIDS, ADSORBED (2 LF OF TETANUS TOXOID AND 2 LF OF DIPHTHERIA TOXOID), 0.5ML (PF), IM 05/15/2003 Social History Tobacco Use Types Packs/Day Years Used Date Smoking Tobacco: Every Day Cigarettes Smokeless Tobacco: Never Alcohol Use Standard Drinks/Week Comments Not Currently 0 (1 standard drink = 0.6 oz pur e alcohol) Sex and Gender Information Value Date Recorded Sex Assigned at Not on file 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 Gender Identity Not on file Sexual Orientation Not on file Last Filed Vital Signs Vital Sign Reading Time Taken Comments Blood Pressure 130/68 10/17/2020 4:24 PM WIRE STRIPPER Pulse 92 10/17/2020 4:24 PM WIRE STRIPPER Temperature 36.7 C (98.1 F) 10/17/2020 4:24 PM WIRE STRIPPER Respiratory Rate 23 10/17/2020 4:24 PM WIRE STRIPPER Oxygen Saturation 98% 10/17/2020 4:24 PM WIRE STRIPPER Inhaled Oxygen Concentration - - Weight 93.6 kg (206 lb 6.4 oz) 10/17/2020 4:24 P M WIRE STRIPPER Height 175.3 cm (5' 9 ) 10/17/2020 4:24 PM WIRE STRIPPER Body Mass Index 30.48 10/17/2020 4:24 PM WIRE STRIPPER Plan of Treatment Health Maintenance Due Date [...] (2 - Td or Tdap) 03/07/2027, 05/15/2003 Insurance [employer] Care Teams Dump Attendant Relationship Specialty Start Date End Date Lianet Helms MD [address] [address] PCP - General Family Practice 12/03/16
--- OUTSIDE RECORDS SUMMARY | 2025-09-08 11:52 | XMS_ITS | Encounter Summary ---
Author Organization [facility] Address [address] [place] [address] Care Team Providers Care Ear Nose Throat Physician Name Role Phone Lianet Helms MD Primary Care Provider [phone]- [phone] Encounter Details Date Type Department Care Team (Latest Contact Info) Description 12/12/2004 Outpatient Historical [facility] Medicine- [address] [address] Bienvenido Oseguera PA NO ADDRESS ON FILE Lateral epicondylitis (Primary Dx) Social History Tobacco Use Types Packs/Day Years Used Date Smoking Tobacco: Never Assessed Sex and Gender Information Value Date Recorded Sex Assigned at Not on file 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
--- OUTSIDE RECORDS SUMMARY | 2025-09-08 11:52 | XMS_ITS | Encounter Summary ---
Author Organization [facility] Address [address] [place] [address] Care Team Providers Care Health Assistant Name Role Phone Lianet Helms MD Primary Care Provider [phone]- [phone] Encounter Details Date Type Department Care Team (Latest Contact Info) Description 12/13/1998 Outpatient Historical [facility] Medicine- [address] [address] Harrison Laws, NO ADDRESS ON FILE Acute upper respiratory infections of unspecified site (Primary Dx) Social History Tobacco Use Types Packs/Day Years Used Date Smoking Tobacco: Never Assessed Sex and Gender Information Value Date Recorded Sex Assigned at Not on file 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
[2025-09-08 11:56] LABS: Hematocrit 46.9 % (37-53); Hemoglobin 15.60 g/dL (11.27-16.99); Mean Corpuscular HGB Conc 33.3 g/dL (30-55); Mean Corpuscular Hemoglobin 28.8 pg (27-33); Mean Corpuscular Volume 86.5 fl (82-101); Nucleated Red Blood Cells % 0 %; Platelet Count 220 10^3/cmm (157-399); Red Blood Count 5.42 10^6/uL (3.85-5.65); White Blood Count 9.69 10^3/uL (3.29-11.43)
[2025-09-08 12:14] LABS: INR 0.92 (0.8-1.2); Prothrombin Time 13.00 SECONDS (12.1-14.9)
[2025-09-08 12:25] LABS: Troponin(5th) Baseline 9 ng/L (0-15)
[2025-09-08 12:26] LABS: Alanine Aminotransferase 25 U/L (0-41); Albumin Level 4.3 g/dL (3.5-5.2); Alkaline Phosphatase 125 U/L (40-130); Anion Gap 15.3 (5-19); Aspartate Amino Transferase 19 U/L (0-40); Blood Urea Nitrogen 17 mg/dL (6-20); Calcium 9.9 mg/dL (8.5-10.5); Carbon Dioxide 28 mmol/L (22-29); Chloride 96 mmol/L (98-107); Globulin 2.5 g/dL (1.3-4.6); Glucose 130 mg/dL (65-115); Lipase 95 U/L (13-60); Osmolality Calculated 283 mOsm/kg (285-295); Potassium 4.3 mmol/L (3.5-5.1); Sodium 135 mmol/L (136-145); Total Protein 6.8 g/dL (6.6-8.7)
[2025-09-08 12:30] VITALS: BP 121/71; PULSE 68; O2SAT 95
[2025-09-08] MEDS: lidocaine 2% viscous 15 ML, aluminum-mag hydrox-simethicon 30 ML, sucralfate oral liq 1 GM PO (13:09)
--- NOTE | 2025-09-08 13:21 | ECG_ITS ---
[facility] 2025-09[facility]08 Pat Name: Britton Moody Department: Room: Gender: Male Art Therapist: : 1970 Requested By: Oni Art Order Number: [id number] Reading MD: CARLOS LEMUS Measurements Intervals [place] Rate: 58 P: 55 MA: 134 QRS: 74 QRSD: 104 T: 56 QT: 410 QTc: 405 Interpretive Statements SINUS BRADYCARDIA POSSIBLE INFERIOR MYOCARDIAL INFARCTION , PROBABLY OLD [30 ms Q WAVE IN II/aVF] Compared to ECG 09/08/2025 11:42:02 No significant changes Electronically Signed On 09-08-2025 18:39:44 AIRPORT SKILLED MAINTENANCE SUPERVISOR by CARLOS LEMUS [email or web address]
[2025-09-08 13:30] VITALS: BP 133/81; PULSE 58; O2SAT 96
[2025-09-08 14:30] VITALS: BP 174/93; PULSE 56; O2SAT 94
[2025-09-08 15:12] VITALS: BP 174/93; PULSE 59; O2SAT 94
== END 2025-09-08 15:15 | disposition home or self-care (01) ==
PROVIDERS: Emergency Provider Emergency Medicine; PCP Family Medicine
DX: R07.89 Other chest pain (principal); Z79.82 Long term (current) use of aspirin; F17.210 Nicotine dependence, cigarettes, uncomplicated; I10 Essential (primary) hypertension; I25.10 Atherosclerotic heart disease of native coronary artery without angina pectoris
CPT/HCPCS: 36415; 71045; 80053; 83690; 84484; 85025; 85610; 93005; 99285; J7030; J9999